=== PATIENT | female | born 1945 | race Caucasian/White ===

== ENCOUNTER 2023-11-04 10:17 | Outpatient (RCR) | payer MEDICARE, BC, SELFPAY | END 2024-03-03 23:59 | disposition home or self-care (01) | PROVIDERS: PCP Family Medicine; Visit Provider Family Medicine | DX: M13.132 Monoarthritis, not elsewhere classified, left wrist (principal); Z51.89 Encounter for other specified aftercare ==

== ENCOUNTER 2025-02-02 08:50 | Outpatient (CLI) | payer MEDICARE, BC, SELFPAY ==
--- NOTE | 2025-02-02 09:15 | CRLHL7_ITS ---
For Patients: As a result of the Century Cures Act, medical imaging exams and procedure reports are released immediately into your electronic medical record. You may view this report before your referring provider. If you have questions, please contact your health care provider. INDICATION: Right foot pain. TECHNIQUE: Noncontrast MRI of the right foot. [id number] includes the forefoot, midfoot and a portion of the hindfoot. Axial, sagittal and coronal T1 and STIR images acquired. 1.5 krishan MRI scanner. COMPARISON: Radiographs from 01/26/2025. 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 Subchondral bone marrow edema involving the plantar aspect of the 1st metatarsal head and medial sesamoid bone relates to full-thickness grade 4 cartilage loss. The 2nd through 5th MTP joints are maintained. Small bunionette is present with small focus of reactive bone marrow edema involving the lateral aspect of the 5th metatarsal head. Degenerative changes within the midfoot and at the midfoot-forefoot junction with areas of subchondral cystic change and subchondral bone marrow edema. Bone marrow edema within the medial navicular bone may be reactive, relate to stress change or bone marrow contusion. There is no acute fracture. Adjacent type 1 navicular accessory ossification center is present. There is soft tissue edema involving the medial aspect of the midfoot. Small amount of fluid within the bursa underlying the distal anterior tibial tendon suggesting bursitis. No significant tendon tear. IMPRESSION: 1. Medial navicular bone marrow edema may be reactive, relate to stress change or bone marrow contusion. No acute fracture. Adjacent soft tissue edema. Nearby anterior tibial bursitis. 2. 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 3. Degenerative changes within the midfoot at the midfoot-forefoot junction with areas of subchondral cystic change and bone marrow edema. Dictated by Gonzalo Day MD @ 02/02/2025 3:54:39 PM (Electronically Signed)
== END 2025-02-02 08:51 | disposition home or self-care (01) ==
LOC: MRI 08:52
PROVIDERS: PCP Family Medicine; Visit Provider Internal Medicine
DX: M79.671 Pain in right foot (principal); M20.11 Hallux valgus (acquired), right foot; M21.611 Bunion of right foot; M19.071 Primary osteoarthritis, right ankle and foot
CPT/HCPCS: 73718